=== PATIENT | male | born 1950 | race Caucasian/White ===

== ENCOUNTER 2016-06-27 16:45 | Emergency (ER) | payer OTHER ==
--- NOTE | 2016-06-27 20:07 | PROVIDER DOCUMENTATION ---
HPI-Male Problem - General Chief Complaint: Male Stated Complaint: MALE /NOT ABLE TO VOID Time Seen by Provider: 06/27/16 20:02 Source: patient Allergies/Adverse Reactions: Patient Allergies Allergy/AdvReac Type Severity Reaction Status Date / Time Penicillins Allergy Unknown Unknown Verified 06/27/16 19:28 Home Medications: Atenolol 100 mg PO DAILY 10/10/12 Benztropine Mesylate 1 mg PO DAILY 10/10/12 Clonazepam 0.5 mg PO BID 10/10/12 Enalapril Maleate 20 mg PO TID 10/10/12 Furosemide 20 mg PO DAILY 10/10/12 Gemfibrozil [Lopid] 600 mg PO BID 10/10/12 Nifedipine [Afeditab Cr] 60 mg PO BID 10/10/12 Pravastatin Sodium 20 mg PO QHS 10/10/12 Risperidone [Risperidone Odt] 1.5 mg PO QHS 10/10/12 Saxagliptin HCl [Onglyza] 2.5 mg PO DAILY 12/01/12 Clonidine Patch [Opysaxbn-Pea-5] 1 each TD Q7D 06/05/16 Hydralazine HCl 50 mg PO TID 06/05/16 Levothyroxine Sodium [Synthroid] 88 mcg PO DAILY 06/05/16 Pramipexole [Mirapex] 0.25 mg PO TID 06/05/16 Primidone 50 mg PO TID 06/05/16 Spironolactone 25 mg PO DAILY 06/05/16 Tamsulosin [Flomax] 0.4 mg PO DAILY 06/05/16 - History of Present Illness-Male Nature of Presenting Problem: 66 y/o m presents to the ed with urinary retention. per pt he has a enlarged prostate and is to have surgery on 07/10/16 for prostate removal. per home health care came out today and changed out cath. pt reports he has not been able to urinate after the cath was changed out which was around 2:30 today. upon arrival pt has bilateral edema in lower extremities. pt denies any fever/ chills. Location of Complaint: reports: other (bladder) Radiation: reports: none Severity in ED: reports: mild Onset/Duration: reports: this afternoon Timing: reports: still present Urinary Symptoms: reports: retention Similar Symptoms Previously?: No Recently seen or treated by another doctor?: No Review of Systems - Adult - REVIEW OF SYSTEMS - ADULT Constitutional: denies: chills, fever Cardiovascular: denies: chest pain, palpitations Genitourinary: reports: urinary retention. denies: flank pain Past History - Adult - PAST MEDICAL HISTORY-ADULT Review of Records: reports: Old Records Reviewed, Nursing Assessment Review, Medications Reviewed - IMMUNIZATION STATUS Childhood Immunizations: See Nurse Assessment Flu Vaccine: See Nurse Assessment - SOCIAL HISTORY Smoking: non-smoker Substance Use: none/never Alcohol Use Frequency: never Physical Exam-General - PHYSICAL EXAM-ADULT Initial Vital Signs Reviewed: Yes - CONSTITUTIONAL General Appearance: alert, no apparent distress - EYES Eyes: PERRL/EOMI, pink conjunctivae, fundi clear, no AV nicking - HEAD, EARS, NOSE, MOUTH & THROAT HENMT: normocephalic/atraumatic, moist mucous membranes, normal ENT inspection - NECK Neck: non-tender, full range of motion, supple - RESPIRATORY Respiratory: chest non-tender, lungs clear, normal breath sounds - CARDIOVASCULAR Cardiovascular: normal peripheral pulses, regular rate, rhythm - GASTROINTESTINAL (ABDOMEN) Abdominal Exam: normal bowel sounds, distended - LYMPHATIC Lymphatic: no adenopathy - MUSCULOSKELETAL Back Exam: normal inspection - SKIN Integumentary: normal color, normal turgor, warm/dry - PSYCHIATRIC Psych/Mental Status: normal mood/affect, normal thought content, normal thought process, oriented x 3 Progress - PLAN OF CARE/RESULTS Progress/Plan/Lab Results: plan of care: imaging Orders Category Date Time Status Bladder Scan and Record Result ORDERED Care 06/27/16 19:34 Active Dwyer Cath Insertion ORDERED Care 06/27/16 19:43 Active Dwyer [Home with Leg Bag] DIRECTED Care 06/27/16 19:43 Active Vital Signs - 24 hr 06/27/16 16:55 Temperature 98.5 F Pulse Rate 96 H Respiratory 18 Rate Blood Pressure 178/111 O2 Sat by Pulse 95 Oximetry pt had bladder scan/362 ml Departure - Departure Time of Disposition Order: 20:07 DIAGNOSIS: Urinary retention Disposition: HOME 01 Certified Medical Emergency: Emergent Condition: Stable Additional Instructions: ED Follow Up Instructions: You have been treated by a care provider in the Emergency Department. These instructions are being provided to you so you can have an understanding of how to care for yourself upon discharge. Upon discharge from the Emergency Department, you are responsible for making arrangements for follow-up care by a physician of your choice. Take all prescribed medications as directed. Return to the Emergency Department immediately for any new or worsening symptoms. You may call the Physician Referral phone number at [phone] to obtain a list of Physicians who are taking new patients. Referrals: Erick Connell MD [Primary Care Provider] - Attestation - Scribe Verification/Attestation Scribe:: Summer Barker Acting as Scribe for:: Davon Moreno Scribe documention review:: This chart was documented by a scribe and accurately reflects the service the provider performed and the decisions made by the provider.
[2016-06-27 20:28] LABS: URINE CULTURE NEEDED? NO; URINE MICRO REVIEW NEEDED? NO; URINE SOURCE CATH
[2016-06-27 20:34] LABS: BILIRUBIN URINE NEGATIVE (NEGATIVE); BLOOD URINE MODERATE (NEGATIVE); COLOR YELLOW; GLUCOSE URINE TRACE mg/dL (NEGATIVE); LEUKOCYTES URINE MODERATE (NEGATIVE); NITRITE URINE NEGATIVE (NEGATIVE); PROTEIN URINE 600 mg/dL (NEGATIVE); SP GRAVITY URINE 1.013; TURBIDITY URINE HAZY (CLEAR); UR EPITHELIAL CELLS <10 /HPF (<10); URINE BACTERIA NEGATIVE /HPF; URINE RBC TNTC /HPF (<10); URINE WBC TNTC /HPF (<10); UROBILINOGEN URINE NORMAL (NORMAL)
[2016-06-27] MEDS ORDERED: SEPTRA DS PO ONE (20:40)
[2016-06-27 21:04] VITALS: BP 163/83
== END 2016-06-27 21:31 | disposition home or self-care (01) ==
LOC: ED 16:45
DX: R33.9 Retention of urine, unspecified (principal); R60.0 Localized edema; R14.0 Abdominal distension (gaseous); N40.0 Benign prostatic hyperplasia without lower urinary tract symptoms; Z79.899 Other long term (current) drug therapy
CPT/HCPCS: 51703; 51798; 81001